=== PATIENT | male | born 1960 | race Caucasian/White ===

== ENCOUNTER 2022-05-05 10:54 | Day surgery (SDC) | payer OTHER, SELFPAY ==
--- NOTE | 2022-05-05 06:40 | W.PM.ENDDOP ---
Date of service: 05/05/22 Time of Service: 13:32 Endoscopy Report DATE OF PROCEDURE: 05/05/22 PRE-OP DIAGNOSIS: Galloway's esophagitis POST-OP DIAGNOSIS: other (Galloway's) PROCEDURE: EGD with biopsies SURGEON: Delmi Llanes ANESTHESIA TYPE: General:No Airway PATHOLOGY: other (Bx of GE junction) COMPLICATIONS: None DISPOSITION: same day INDICATIONS: Mr. Montes De Oca is a pleasant 61-year-old gentleman who was diagnosed with Galloway's esophagitis in 2019.? He is here today to discuss a surveillance EGD.? He denies any dysphagia or heartburn type symptoms.? He takes pantoprazole 40 mg daily as well as sucralfate 1 g 4 times a day.? Risks, benefits and complications have been reviewed. Complications include but are not limited to bleeding, pain, perforation, sore throat, aspiration, and adverse reaction to the medications.? Questions were entertained and answered to their satisfaction and they wished to proceed. No guarantees were given or implied. FINDINGS: normal appearing stomach, duodenuma and esophagus PROCEDURE DESCRIPTION: After informed consent was obtained the patient was take to the procedure room and placed in a supine position. Monitors were applied and a time out was done. The patients name, date of , procedure type, allergies to medications and metal in their body was reviewed. A bite block was placed and the patient was sedated. Once sedated and comfortable the gastroscope was advanced through the oropharynx which was grossly normal into the esophagus. The proximal and mid-esophagus were normal. In the distal esophagus there was no inflammation noted. The scope was advanced into the stomach and through the pylorus into the 3rd portion of the duodenum. The duodenum was noted to be normal. The scope was retracted back into the stomach which was normal. The scope was retroflexed. The cardia and fundus were noted to be normal. There was no hiatal hernia noted. The scope was retracted back into the esophagus and biopsies were done of the GE junction for surveillance Galloawy's. The Z line was regular. The GE junction was at 35 cm. The scope was removed and the patient was woken up and taken back to [facility] in stable condition.
--- NOTE | 2022-05-05 06:41 | W.PM.DSUDISC ---
Date of service: 05/05/22 Time of Service: 13:30 Discharge Plan Disposition Patient Disposition: HOME Condition: Good Discharge Details Reason For Visit: EGD Attending Provider: Delmi Llanes Primary Care Provider: Wang Munoz Home Meds and New Rx's Prescriptions: Continued losartan 50 mg tablet 50 mg PO DAILY omeprazole 40 mg capsule,delayed release(DR/EC) 40 mg PO BID sucralfate 1 gram tablet 1 g PO QACHS aspirin 81 mg Tablet 81 mg PO DAILY Discharge Instructions Additional Instructions: Findings: No inflammation Follow up: 2-3 years for surveillance Please call if you develop: fevers >101.5 Nausea or Vomiting Abdominal pain that is not transient Rectal bleeding that is more then a tbsp A hard abdomen and inability to pass gas DAY SURGERY UNIT POST ENDOSCOPY INSTRUCTIONS Instructions for everyone who is given Anesthesia: For your safety, please do the following for the next 24 Hours: a. Do not drive or operate dangerous equipment b. Do not drink alcohol beverages or use any recreational drugs for the first 24 hours or while taking pain medications. The medications in your body may have a reaction that can be dangerous. c. Do not make any important decisions or sign any important papers 1. Generally there are no restrictions on your activity after a day or so has gone by, but you may feel a bit fatigued for a few days. 2. After you arrive home you may have a light meal and return to a normal diet as you can tolerate it without feeling sick to your stomach. 3. After surgery, you may feel pain or discomfort. This should be only transient, but if it persists please contact your doctor. 4. If there are any questions regarding the findings of your procedure, please feel free to contact your doctor. 6. If you are unable to contact your doctor with a problem, contact the hospital at [phone]. 7. Continue all your regular medications unless directed otherwise. I understand the above instructions and have no questions. Signature of Patient or Responsible Adult Escort Date/Time Name of Responsible Adult Escort Signature of Nurse Date/Time Activity:: Activity as Tolerated Diet:: As Tolerated Discharge Orders Discharge Orders: Discharge Order (Routine); Ordered 05/05/22 Ordered By: Delmi Llanes
[2022-05-05 11:08] VITALS: BP 148/95; PULSE 69; RESP 16; TEMP 36.5; O2SAT 100
[2022-05-05] MEDS: Lactated Ringers 1,000 ML 80 ML IV (11:43)
--- NOTE | 2022-05-05 12:43 | W.ANESPRE ---
General Info Date of Service Date Performed: 05/05/22 Height: 5 ft 9 in Weight: 103.8 kg Body Mass Index (BMI): 33.7 Surgical Procedure: Operation Date: 05/05/22 13:05 Proposed Procedure Side Surgeon p Gastroscopy Delmi Llanes MD Meds Allergies and Home Medications Allergies Allergy/AdvReac Type Severity Reaction Status Date / Time No Known Allergies Allergy Verified 05/05/22 11:20 Home Medication Medication Instructions Recorded sucralfate 1 gram tablet 1 g PO QACHS 04/08/22 losartan 50 mg tablet 50 mg PO DAILY 04/20/22 omeprazole 40 mg capsule,delayed 40 mg PO BID 04/20/22 release aspirin 81 mg tablet 81 mg PO DAILY 05/04/22 Current Visit Medications: Current Medications Generic Name Dose Route Start Last Admin Trade Name Freq PRN Reason Stop Dose Admin Hyoscyamine Sulfate 0.125 mg 05/05/22 06:40 Hyoscyamine 0.125 Mg Sl/Oral/Chew SL DIRECTED PRN Ringer's Solution 1,000 mls @ 80 mls/hr 05/05/22 06:00 05/05/22 11:43 IV 06/03/22 23:59 80 mls/hr INFUSION LISBET Administration IV Miscellaneous Supplies 1 each 05/05/22 06:00 Iv Access IV 06/03/22 23:59 DIRECTED LISBET Ondansetron HCl 4 mg 05/05/22 06:40 Ondansetron 4 Mg/2 Ml Vial IVP Q4H PRN PRN Nausea / Vomiting Sodium Chloride 0 ml 05/05/22 06:00 Normal Saline Flush 10 Ml Syr IV 06/03/22 23:59 PRN PRN Sodium Chloride 0 ml 05/05/22 06:00 Normal Saline 10 Ml Vial IJ 06/03/22 23:59 DIRECTED PRN Sterile Water 0 ml 05/05/22 06:00 Water,Injection,Sterile 10 Ml Vial IJ 06/03/22 23:59 DIRECTED PRN PFSH Active Problems Active Problems: Problem Status Onset Code History of Galloway's esophagus Z87.19 GERD (gastroesophageal reflux disease) K21.9 Medical History Medical History Anxiety Hypertension, essential Insomnia Joint pain Low back pain Surgical History Surgical History H/O esophagogastroduodenoscopy (~02/21/20) History of lumbar surgery Hx of appendectomy S/P colonoscopy 2013- TA, 2018- nl Tobacco Smoking/Tobacco Use Status: Never Alcohol Alcohol Intake: current Alcohol intake frequency: a few times a week Alcohol type: beer Substance Use Substance use: Never Substance use type: does not use Vital Signs and Lab Results Vital Signs Most Recent Vital Signs in EMR: Most Recent Vital Signs Temp Pulse Resp BP Pulse Ox 36.5 C 69 16 148/95 H 100 05/05/22 11:08 05/05/22 11:08 05/05/22 11:08 05/05/22 11:08 05/05/22 11:08 Lab Results Blood Type / Crossmatch: No Data to Display Complete Blood Count: No Data to Display Complete Metabolic Panel: No Data to Display Liver Function Panel: No Data to Display Coagulation Panel: No Data to Display Cardiac Panel: No Data to Display Arterial Blood Gas: No Data to Display Venous Blood Gas: No Data to Display Pancreas Panel: No Data to Display Thyroid Panel: No Data to Display Infectious Disease: No Data to Display Blood Cultures: No Data to Display Toxicology Panel: No Data to Display Anesthesia Assessment and Plan Anesthesia History Personal History: No History of Anesthesia Complications Family History: No Family History of Anesthesia Complications Exercise Tolerance Exercise Tolerance: Metabolic Equivalents>4 Pertinent Negatives Pertinent Negatives: No Symptoms of GERD, No Major Cardiovascular Symptoms or Complaints and No Major Pulmonary Symptoms or Complaints Cardiac & Pulmonary Exam Cardiac Exam: Normal S1/S2 Heart Sounds Pulmonary Exam: Clear Bilateral Breath Sounds Implantable Cardiac Device Does patient have a Pacemaker or an ICD?: No Airway Exam Known Difficult Airway: No Mallampati Class: 1 Mouth Opening: Normal (> 3cm) Thyromental Distance: Greater than 3 cm Neck Range of Motion: Full ROM Neck Circumference: Thick Teeth Condition: Normal Dentition ASA Classification ASA Score: ASA 2 Emergency Case?: No NPO Status NPO Status: NPO Clears >2 hours, Solids >8 hours Anesthesia Plan Resuscitation Status: Full Code Anesthesia Technique: General Anesthesia Airway Planned: Natural Airway Monitors Used: Standard Monitors
[2022-05-05 12:46] VITALS: BMI 33.7
--- NOTE | 2022-05-05 13:22 | ESO_PTH ---
PATIENT: Anup Montes De Oca LOC: [facility] U#:[id number] AGE/SX: 61/M ROOM: RE05/05/[address]: Delmi Llanes MD : 1960 BED: DIS: 05/05/2022 SPEC #: [id number] RECD: 05/05/22 18:21 STATUS: KESHAV REQ #: [id number] HANSA: 05/05/22 13:[address]: Delmi Llanes DEPT: Surgical Specimen RECD BY: Jana Weinstein ENTERED: 05/05/22 18:21 SP TYPE: Eso OTHR DR: Wang Munoz Tissues: 1 - ESOPHAGUS BIOPSY Procedures: GROSS AND MICRO LEVEL 4 Comments: [id number]
[2022-05-05 13:32] VITALS: BP 112/71; PULSE 85; RESP 16; TEMP 36.5; O2SAT 97
--- NOTE | 2022-05-05 13:57 | W.ANESPOSTOP ---
Postoperative Evaluation Date, Time and Location Date Performed: 05/05/22 Time Performed: 13:57 Patient Location: Day Surgery Unit Vital Signs Most Recent Imported Vital Signs: Most Recent Vital Signs Temp Pulse Resp BP Pulse Ox 36.5 C 85 16 112/71 97 05/05/22 13:32 05/05/22 13:32 05/05/22 13:32 05/05/22 13:32 05/05/22 13:32 Pain Score Most Recent Pain Score: Most Recent Pain Score Pain Level 0 05/05/22 13:32 Assessment Mental Status: Awake (Alert & Oriented to Patient Baseline) Airway and Respiratory Function: Patent airway with normal (patient baseline) respiratory exam Cardiovascular Function: Hemodynamically Stable Hydration Status: Adequately Hydrated Nausea & Vomiting: No Nausea or Vomiting Pain: Pt. Denies Any Pain Peripheral Nerve Block: Patient did not receive a nerve block
[2022-05-05 14:00] VITALS: BP 129/89; PULSE 72; RESP 16; TEMP 36.2; O2SAT 99
== END 2022-05-05 14:15 | disposition home or self-care (01) ==
PROVIDERS: PCP Nurse Practitioner Family; Visit Provider Surgery
PROC: 0DJ68ZZ Inspection of Stomach, Via Natural or Artificial Opening Endoscopic (ICD-10-PCS; CPT 43235; principal; 2022-05-05 13:00)
DX: K22.70 Barrett's esophagus without dysplasia (principal); K22.89 Other specified disease of esophagus
CPT/HCPCS: 43239; 88305; J2405

== ENCOUNTER 2025-06-14 08:17 | Day surgery (SDC) | payer OTHER, SELFPAY ==
[2025-06-14 08:51] VITALS: BP 144/95; PULSE 76; RESP 16; TEMP 36.4; O2SAT 98
[2025-06-14] MEDS: Lactated Ringers 1,000 ML 80 ML IV (09:11)
--- NOTE | 2025-06-14 09:26 | W.ANESPRE ---
General Info Date of Service Date Performed: 06/14/25 Height: 5 ft 9 in Weight: 107.6 kg Body Mass Index (BMI): 35.0 Surgical Procedure: Operation Date: 06/14/25 09:35 Proposed Procedure Side Surgeon p Gastroscopy La Sheikh MD Actual Procedure Side Surgeon p Gastroscopy Not Applicable La Sheikh MD Pre-Op Diagnosis Post-Op Diagnosis History of Galloway's esophagus, GERD Meds Allergies and Home Medications Allergies Allergy/AdvReac Type Severity Reaction Status Date / Time No Known Allergies Allergy Verified 06/14/25 08:50 Home Medication ?Medication ?Instructions ?Recorded sucralfate 1 gram tablet 1 g PO QACHS 04/08/22 losartan 50 mg tablet 50 mg PO DAILY 04/20/22 omeprazole 40 mg capsule,delayed 40 mg PO BID 04/20/22 release aspirin 81 mg tablet 81 mg PO DAILY 05/04/22 Held on 06/13/25. Instructions: Pt Stopped/Never Started Current Visit Medications: Current Medications Generic Name Dose Route Start Last Admin Trade Name Liberty PRN Reason Stop Dose Admin Ringer's Solution 1,000 mls @ 80 mls/hr 06/14/25 06:00 06/14/25 09:11 IV 06/14/25 23:59 80 mls/hr INFUSION LISBET Administration Sodium Chloride 0 ml 06/14/25 06:00 Normal Saline Flush 10 Ml Syr IV 06/14/25 23:59 PRN PRN Sodium Chloride 0 ml 06/14/25 06:00 Normal Saline 10 Ml Vial IJ 06/14/25 23:59 DIRECTED PRN Sterile Water 0 ml 06/14/25 06:00 Water,Injection,Sterile 10 Ml Vial IJ 06/14/25 23:59 DIRECTED PRN PFSH Active Problems Active Problems: Problem Status Onset Code History of Galloway's esophagus Acute Z87.19 GERD (gastroesophageal reflux disease) Chronic K21.9 Medical History Medical History Low back pain Joint pain Insomnia Hypertension, essential Anxiety Surgical History Surgical History History of lumbar surgery Hx of appendectomy S/P colonoscopy 2012- TA, 2018- nl H/O esophagogastroduodenoscopy (~02/21/20) 04/2022 Tobacco Smoking/Tobacco Use Status: Never Alcohol Alcohol Intake: current Alcohol intake frequency: a few times a week Alcohol type: beer Substance Use Substance use: Never Substance use type: does not use Vital Signs and Lab Results Vital Signs Most Recent Vital Signs in EMR: Most Recent Vital Signs Temp Pulse Resp BP Pulse Ox 36.4 C L 76 16 144/95 H 98 06/14/25 08:51 06/14/25 08:51 06/14/25 08:51 06/14/25 08:51 06/14/25 08:51 Anesthesia Assessment and Plan Anesthesia History Personal History: No History of Anesthesia Complications Family History: No Family History of Anesthesia Complications Exercise Tolerance Exercise Tolerance: Metabolic Equivalents>4 Pertinent Negatives Pertinent Negatives: No Major Pulmonary Symptoms or Complaints Cardiac & Pulmonary Exam Cardiac Exam: Normal S1/S2 Heart Sounds Pulmonary Exam: Clear Bilateral Breath Sounds Implantable Cardiac Device Does patient have a Pacemaker or an ICD?: No Airway Exam Known Difficult Airway: No Mallampati Class: 1 Mouth Opening: Normal (> 3cm) Thyromental Distance: Greater than 3 cm Neck Range of Motion: Full ROM Neck Circumference: Thick Teeth Condition: Normal Dentition ASA Classification ASA Score: ASA 2 Emergency Case?: No NPO Status NPO Status: NPO Clears >2 hours, Solids >8 hours Anesthesia Plan Resuscitation Status: Full Code Anesthesia Technique: General Anesthesia Airway Planned: Natural Airway Monitors Used: Standard Monitors
[2025-06-14 09:27] VITALS: BMI 35.0
--- NOTE | 2025-06-14 09:27 | W.PM.HP.N ---
Date of service: 06/14/25 Time of Service: : Assessment and Plan Assessment and plan (1) History of Galloway's esophagus: Status: Acute Assessment and plan: Patient is a 64 yo male who presented to clinic for follow up upper endoscopy due to history of Galloway's esophagus. He does endorse ongoing reflux symptoms. He denies any recent changes in his health. The procedure was discused as well as the risks and benefits and consent was obtained prior to the procedure. (2) GERD (gastroesophageal reflux disease): Status: Chronic History of Present Illness Narrative: Patient is a 64 yo male who presented to clinic for follow up upper endoscopy due to history of Galloway's esophagus. He does endorse ongoing reflux symptoms. He denies any recent changes in his health. Review of Systems Cardiovascular Cardiovascular: Denies chest pain and Denies dyspnea Respiratory Respiratory: Denies dyspnea Gastrointestinal Gastrointestinal: Denies abdominal pain, Denies nausea and Denies vomiting PFSH All Active Problems History of Galloway's esophagus (Acute) GERD (gastroesophageal reflux disease) (Chronic) Medical History Low back pain Joint pain Insomnia Hypertension, essential Anxiety Surgical History History of lumbar surgery Hx of appendectomy S/P colonoscopy 2012- TA, 2018- nl H/O esophagogastroduodenoscopy (~02/21/20) 04/2022 Social History Smoking/Tobacco Use Status: Never Smoking risk assessment performed?: Yes Alcohol Intake: current Alcohol Intake frequency: a few times a week Alcohol type: beer Drug use: Never Substance use type: does not use Current gender identity: male Do you feel safe at home: Yes Do you feel safe in your relationship?: Yes Meds Allergies and Home Medications Allergies Allergy/AdvReac Type Severity Reaction Status Date / Time No Known Allergies Allergy Verified 06/14/25 08:50 Home Medications ?Medication ?Instructions ?Recorded ?Confirmed ?Type sucralfate 1 gram tablet 1 g PO QACHS 04/08/22 06/14/25 History losartan 50 mg tablet 50 mg PO DAILY 04/20/22 06/14/25 History omeprazole 40 mg capsule,delayed 40 mg PO BID 04/20/22 06/14/25 History release aspirin 81 mg tablet 81 mg PO DAILY 05/04/22 06/13/25 History Held on 06/13/25. Instructions: Pt Stopped/Never Started Exam Narrative Exam Narrative: General: Well appearing, no acute distress. Skin: Good turgor, no visible rashes or lesion HEENT: Normocephalic, atraumatic CV: Regular rate Lungs: Bilateral equal chest rise, non-labored breathing Abdomen: Non-distended Extremities: Warm, well perfused Neurologic: No focal deficits Psychiatric: Alert and oriented, normal mood and affect Results Last Vital Signs Temp 36.4 C L 06/14/25 08:51 Pulse 76 06/14/25 08:51 Resp 16 06/14/25 08:51 BP 144/95 H 06/14/25 08:51 Pulse Ox 98 06/14/25 08:51 VTE Prohylaxis Risk Level: Low Risk Contraindications: Other (Preprocedure ) Prophylaxis: Patient ambulatory Time Spent Time spent with Patient: <40 minutes Time was spent: preparing to see the patient(eg.review tests), obtaining and/or reviewing separately otained hiistory and counseling the patient
--- NOTE | 2025-06-14 09:45 | STOM_PTH ---
PATIENT: Anup Montes De Oca LOC: [facility] U#:[id number] AGE/SX: 64/M ROOM: RE06/14/[address]: La Sheikh : 1960 BED: DIS: 06/14/2025 SPEC #: [id number] RECD: 06/14/25 12:28 STATUS: KESHAV REQ #: [id number] HANSA: 06/14/25 09:[address]: La Sheikh DEPT: Surgical Specimen RECD BY: Jana Weinstein ENTERED: 06/14/25 12:29 SP TYPE: STOMACH OTHR DR: Wang Munoz Tissues: 1 - STOMACH BIOPSY 2 - STOMACH BIOPSY 3 - ESOPHAGUS BIOPSY Procedures: GROSS AND MICRO LEVEL 4 Comments: [id number]
--- NOTE | 2025-06-14 09:57 | W.PM.DSUDISC ---
Date of service: 06/14/25 Discharge Plan Disposition Patient Disposition: Home Condition: Good Discharge Details Reason For Visit: Galloway's esophagus, reflux Attending Provider: La Sheikh Primary Care Provider: Wang Munoz Recommendations for Follow Up Recommended tests to be ordered by follow up provider: Follow up biopsy results Home Meds and New Rx's Prescriptions: Continued losartan 50 mg tablet 50 mg PO DAILY omeprazole 40 mg capsule,delayed release(DR/EC) 40 mg PO BID sucralfate 1 gram tablet 1 g PO QACHS aspirin 81 mg Tablet 81 mg PO DAILY Discharge Instructions Additional Instructions: Your upper endoscopy went well today. You did have evidence of changes consistent with Galloway's esophagus and biopsies of this area were performed. You also had some small benign appearing gastric polyps which were biopsied. Otherwise everything appeared normal. We will contact you and make recommendations for when to have a repeat upper endoscopy once the results return. Please contact the general surgery office if you have any questions or concerns. 1. Do not drive, drink alcohol, operate machinery, make critical decisions, or do activities that require coordination or balance for 24 hours. 2. Go directly to the emergency room if you notice any of the following: Develop chills (warm to touch), or if you have a thermometer and your temperature is above 101 Difficulty breathing or difficultly swallowing Persistent vomiting Severe abdominal pain, other than gas cramps Severe chest pain Black, tarry stools Any bleeding ? exceeding one tablespoon 3. Call your physician if the site where your intravenous was started becomes red, swollen, painful, and warm to touch. 4. Your physician has reviewed your pre-procedure medications. Please continue to take those medications as previously ordered. You will be given specific information/education regarding any changes to your medications before leaving. 5. Your throat may be sore following the procedure. This is normal and should resolve in the coming days. Stand Alone Forms: Anesthesia Discharge Inst., [facility] (DS[facility]), Portal Information Activity:: Activity as Tolerated Diet:: As Tolerated Discharge Orders Discharge Orders: Discharge Order (Routine); Ordered 06/14/25 Ordered By: La Sheikh DS: Diagnosis Discharge Diagnosis (1) History of Galloway's esophagus: Status: Acute (2) GERD (gastroesophageal reflux disease): Status: Chronic
[2025-06-14 10:00] VITALS: BP 107/69; PULSE 87; RESP 16; TEMP 36.5; O2SAT 96
--- NOTE | 2025-06-14 10:05 | W.PM.ENDDOP ---
Date of service: 06/14/25 Time of Service: 10:05 Endoscopy Report DATE OF PROCEDURE: 06/14/25 PRE-OP DIAGNOSIS: History of ritter's esophagus POST-OP DIAGNOSIS: same PROCEDURE: Upper endoscopy with biopsy and gastric polypectomy SURGEON: La Sheikh ANESTHESIA TYPE: General:No Airway ESTIMATED BLOOD LOSS: 1 PATHOLOGY: other (Antrum biopsy, gastric polypectomy, GE junction biopsy ) COMPLICATIONS: None DISPOSITION: PACU INDICATIONS: Patient is a 64 yo male who presented to clinic for follow up upper endoscopy due to history of Ritter's esophagus. He does endorse ongoing reflux symptoms. The procedure was discussed as well as the risks and benefits and consent was obtained prior to the procedure. FINDINGS: Normal duodenum. Antrum cold forcep biopsy obtained. Small benign appearing gastric polyps. Gastric polypectomy performed. Evidence of <1cm, short segment, consistent with Ritter's. Four quadrant biopsies performed at GE junction. PROCEDURE DESCRIPTION: After adequate sedation, the upper endoscope was inserted and advanced in the duodenum under direct visualization. The scope was withdrawn and the mucosa inspected. The duodenum appeared normal. The stomach was normal with no evidence of ulcerations or erosions. ?The antrum area was biopsied and also checked for H. pylori.? There were a few scattered small, benign appearing gastric polyps. A gastric polypectomy was performed with cold forceps. Retroflexion view in the stomach was normal. At the lower esophagus Z line area, this was inspected and noted to evidence of short segment <1cm Ritter's. Four quadrant biopsies of this were obtained at the GE junction. No evidence of esophageal strictures. Otherwise, the esophagus was normal. The scope was completely withdrawn from the patient. The patient tolerated the procedure well with no immediate complications.
--- NOTE | 2025-06-14 10:29 | W.ANESPOSTOP ---
Postoperative Evaluation Date, Time and Location Date Performed: 06/14/25 Time Performed: 10:25 Patient Location: Day Surgery Unit Vital Signs Most Recent Imported Vital Signs: Most Recent Vital Signs Temp Pulse Resp BP Pulse Ox 36.5 C 87 16 107/69 96 06/14/25 10:00 06/14/25 10:00 06/14/25 10:00 06/14/25 10:00 06/14/25 10:00 Pain Score Most Recent Pain Score: Most Recent Pain Score Pain Level 0 06/14/25 10:00 Assessment Mental Status: Awake (Alert & Oriented to Patient Baseline) Airway and Respiratory Function: Patent airway with normal (patient baseline) respiratory exam Cardiovascular Function: Hemodynamically Stable Hydration Status: Adequately Hydrated Nausea & Vomiting: No Nausea or Vomiting Pain: Pt. Denies Any Pain Peripheral Nerve Block: Patient did not receive a nerve block
[2025-06-14 10:30] VITALS: BP 112/74; PULSE 71; RESP 16; TEMP 36.3; O2SAT 98
== END 2025-06-14 10:41 | disposition home or self-care (01) ==
PROVIDERS: PCP Nurse Practitioner Family; Visit Provider Student in an Organized Health Care Education/Training Program
PROC: 0DJ68ZZ Inspection of Stomach, Via Natural or Artificial Opening Endoscopic (ICD-10-PCS; CPT 43235; principal; 2025-06-14 09:30)
DX: K22.70 Barrett's esophagus without dysplasia (principal); K31.7 Polyp of stomach and duodenum; K22.89 Other specified disease of esophagus
CPT/HCPCS: 43239; 88305; J2003; J2704